=== PATIENT | male | born 1970 | race Hispanic/Latino ===

== ENCOUNTER 2018-10-19 05:20 | Observation (INO) | payer OTHER ==
[2018-10-19] MEDS ORDERED: Aspirin 325 mg EC Tablets PO STA (05:45)
--- NOTE | 2018-10-19 05:45 | C.PDOC ---
History Of Present Illness The patient, whose past medical history includes HTN and Hyperlipidemia (compliant with medication) presents to the ED for evaluation of chest discomfort which began prior to arrival. Patient reports a chest discomfort, like his heart rhythm was "irregular." He had some increased belching, for which he took Gas-X without relief. Patient denies chest pain, extremity pain, nausea, vomiting. Time Seen by Provider: 10/19/18 05:44 Chief Complaint (Nursing): Chest Pain History Per: Patient History/Exam Limitations: no limitations Onset/Duration Of Symptoms: Mins Current Symptoms Are (Timing): Still Present Severity: None Pain Scale Rating Of: 0 Quality: denies: "Pain" Associated Symptoms: denies: Nausea Modifying Factors: None Exacerbating Factors: None Alleviating Factors: None Recent travel outside of the [place]: No Additional History Per: Patient Past Medical History Reviewed: Historical Data, Nursing Documentation, Vital Signs Vital Signs: Last Vital Signs Temp 97.6 F 10/19/18 05:32 Pulse 77 10/19/18 05:32 Resp 20 10/19/18 05:32 BP 145/79 10/19/18 05:32 Pulse Ox 95 10/19/18 05:32 - Medical History PMH: Diverticulitis, Gall Bladder Disease, HTN, Sleep Apnea Denies: Chronic Kidney Disease Surgical History: Cholecystectomy Family History: States: Unknown Family Hx - Social History Hx Tobacco Use: Yes Hx Alcohol Use: Yes Hx Substance Use: No - Immunization History Hx Tetanus Toxoid Vaccination: Yes Hx Influenza Vaccination: No Hx Pneumococcal Vaccination: Yes Review Of Systems Constitutional: Negative for: Fever, Chills Eyes: Negative for: Vision Change Cardiovascular: Positive for: Other (chest discomfort ). Negative for: Chest Pain, Palpitations Respiratory: Negative for: Cough, Shortness of Breath Gastrointestinal: Negative for: Nausea, Vomiting, Abdominal Pain, Diarrhea, Constipation Genitourinary: Negative for: Dysuria, Frequency, Hematuria Musculoskeletal: Negative for: Neck Pain, Shoulder Pain, Arm Pain, Back Pain Skin: Negative for: Rash, Lesions, Jaundice, Bruising Neurological: Negative for: Weakness, Numbness Psych: Negative for: Anxiety Physical Exam - Physical Exam Appears: Non-toxic, No Acute Distress, Other (morbidly obese ) Skin: Warm, Dry Head: Normacephalic Eye(s): bilateral: Normal Inspection Oral Mucosa: Moist Neck: Supple Chest: Symmetrical, No Deformity, No Tenderness Cardiovascular: Rhythm Regular, No Murmur Respiratory: No Rales, No Rhonchi, No Wheezing, Other (speaking in full sentences ) Extremity: Normal ROM, Capillary Refill (less than 2 seconds ) Neurological/Psych: Oriented x3 ED Course And Treatment - Laboratory Results Result Diagrams: 10/19/18 06:09 10/19/18 06:09 ECG: Interpreted By Me, Viewed By Me ECG Rhythm: Sinus Rhythm (71), Nonspecific Changes O2 Sat by Pulse Oximetry: 95 (on RA) Pulse Ox Interpretation: Normal - Radiology CXR: Interpreted by Me, Viewed By Me CXR Interpretation: No: Infiltrates, Fracture, Pnemothorax Progress Note: Bloodwork, CXR, EKG ordered and reviewed. Aspirin PO given. Disposition Counseled Patient/Family Regarding: Studies Performed, Diagnosis - Disposition Disposition Time: 07:00 Condition: FAIR Forms: [facility] (Lux[place]bourgish) - Clinical Impression Clinical Impression: Palpitations - Scribe Statement The provider has reviewed the documentation as recorded by the Scribe (Kandi Garcia) Provider Attestation: All medical record entries made by the Scribe were at my direction and personally dictated by me. I have reviewed the chart and agree that the record accurately reflects my personal performance of the history, physical exam, medical decision making, and the department course for this patient. I have also personally directed, reviewed, and agree with the discharge instructions and disposition. Physician Patient Turnover Patient Signed Over To: Yas Huitron Handoff Comments: pending labs, re-eval and disposition
[2018-10-19] MEDS ORDERED: Aspirin 325 mg EC Tablets PO ONE (05:54)
[2018-10-19 06:18] LABS: BASO # 0.1 K/uL (0.0-0.2); BASO % 0.8 % (0.0-2.0); EOS # 0.2 K/uL (0.0-0.7); EOS % 3.4 % (0.0-4.0); HEMOGLOBIN 15.2 g/dL (12.0-18.0); LYMPH # 1.5 K/uL (1.0-4.3); LYMPH % 21.2 % (20.0-40.0); MEAN CELL VOLUME 86.1 fL (80.0-94.0); MEAN CORPUSCULAR HEMOGLOBIN 29.4 pg (27.0-31.0); MEAN CORPUSCULAR HGB CONC 34.1 g/dL (33.0-37.0); MEAN PLATELET VOLUME 7.1 fL (7.2-11.7); MONO # 0.6 K/uL (0.0-0.8); MONO % 8.1 % (0.0-10.0); NEUT # 4.6 K/uL (1.8-7.0); NEUT % 66.5 % (50.0-75.0); RBC 5.16 Mil/uL (4.40-5.90)
[2018-10-19 06:30] LABS: BLOOD UREA NITROGEN 23 mg/dL (9-20); CALCIUM 8.4 mg/dl (8.6-10.4); GFR NON-AFRICAN AMERICAN > 60
[2018-10-19 06:39] LABS: ALB/GLOB RATIO 1.5 (1.0-2.1); ALBUMIN 4.6 g/dL (3.5-5.0); ALT/SGPT 32 U/L (21-72); AST/SGOT 51 U/L (17-59)
--- NOTE | 2018-10-19 07:28 | RAD ---
Date of service: 10/19/2018 HISTORY: chest pain COMPARISON: None available. FINDINGS: LUNGS: No active pulmonary disease. PLEURA: No significant pleural effusion identified, no pneumothorax apparent. CARDIOVASCULAR: No aortic atherosclerotic calcification present. Normal cardiac size. No pulmonary vascular congestion. OSSEOUS STRUCTURES: No significant abnormalities. VISUALIZED UPPER ABDOMEN: Normal. OTHER FINDINGS: None. IMPRESSION: No acute cardiopulmonary disease appreciated.
[2018-10-19 07:42] LABS: BARBITURATES, UR NEGATIVE (NEGATIVE); BENZODIAZEPINES, UR NEGATIVE (NEGATIVE); OPIATES, UR NEGATIVE (NEGATIVE); PHENCYCLIDINE, UR NEGATIVE (NEGATIVE)
[2018-10-19 12:24] VITALS: RESP 20
[2018-10-19] MEDS: [UNRECOGNIZED DRUG - OTHER] PO SCH (22:12)
[2018-10-19] MEDS: CHLORDIAZEPOXIDE HCL PO SCH (22:12)
[2018-10-19] MEDS: VALSARTAN PO SCH (22:13)
[2018-10-19] MEDS: HCTZ PO SCH (22:13)
--- NOTE | 2018-10-19 23:08 | CP.PCM.HP ---
Present on Admission - Present on Admission Any Indicators Present on Admission: No Past Patient History - Past Social History Smoking Status: Current Some Days Smoker - CARDIAC Hx Hypertension: Yes - PULMONARY Hx Sleep Apnea: Yes - NEUROLOGICAL Hx Neurological Disorder: No - HEENT Hx HEENT Problems: Yes Hx Macular Degeneration: Yes - RENAL Hx Chronic Kidney Disease: No - ENDOCRINE/METABOLIC Hx Endocrine Disorders: No - HEMATOLOGICAL/ONCOLOGICAL Hx Blood Disorders: No - INTEGUMENTARY Hx Dermatological Problems: No - MUSCULOSKELETAL/RHEUMATOLOGICAL Hx Musculoskeletal Disorders: No - GASTROINTESTINAL Hx Diverticulitis: Yes Hx Gall Bladder Disease: Yes - GENITOURINARY/GYNECOLOGICAL Hx Genitourinary Disorders: No - PSYCHIATRIC Hx Substance Use: No - SURGICAL HISTORY Hx Cholecystectomy: Yes - ANESTHESIA Hx Anesthesia: Yes Hx Anesthesia Reactions: No Hx Malignant Hyperthermia: No Meds Allergies/Adverse Reactions: Allergies Allergy/AdvReac Type Severity Reaction Status Date / Time Penicillins Allergy RASH Verified 10/19/18 05:38 Results - Vital Signs Recent Vital Signs: Last Vital Signs Temp 97.6 F 10/19/18 15:00 Pulse 68 10/19/18 20:03 Resp 20 10/19/18 15:00 BP 150/81 10/19/18 20:03 Pulse Ox 97 10/19/18 15:00 - Labs Result Diagrams: 10/19/18 06:09 10/20/18 07:04 Labs: Laboratory Results - last 24 hr 10/19/18 10/19/18 10/19/18 06:09 06:09 07:02 WBC 7.0 RBC 5.16 Hgb 15.2 Hct 44.4 MCV 86.1 MCH 29.4 MCHC 34.1 RDW 14.0 Plt Count 262 MPV 7.1 L Neut % (Auto) 66.5 Lymph % (Auto) 21.2 Calvert % (Auto) 8.1 Eos % (Auto) 3.4 Baso % (Auto) 0.8 Neut # (Auto) 4.6 Lymph # (Auto) 1.5 Calvert # (Auto) 0.6 Eos # (Auto) 0.2 Baso # (Auto) 0.1 Sodium 134 Potassium 5.3 H Chloride 102 Carbon Dioxide 25 Anion Gap 12 BUN 23 H Creatinine 0.8 Est GFR ( Amer) > 60 Est GFR (Non-Af Amer) > 60 Random Glucose 115 H Calcium 8.4 L Total Bilirubin 2.1 H AST 51 ALT 32 Alkaline Phosphatase 90 Troponin I < 0.0120 Total Protein 7.7 Albumin 4.6 Globulin 3.0 Albumin/Globulin Ratio 1.5 TSH 3rd Generation 1.60 Urine Opiates Screen Negative Urine Methadone Screen Negative Ur Barbiturates Screen Negative Ur Phencyclidine Scrn Negative Ur Amphetamines Screen Negative U Benzodiazepines Scrn Negative U Oth Cocaine Metabols Negative U Cannabinoids Screen Negative 10/19/18 14:38 WBC RBC Hgb Hct MCV MCH MCHC RDW Plt Count MPV Neut % (Auto) Lymph % (Auto) Calvert % (Auto) Eos % (Auto) Baso % (Auto) Neut # (Auto) Lymph # (Auto) Calvert # (Auto) Eos # (Auto) Baso # (Auto) Sodium Potassium Chloride Carbon Dioxide Anion Gap BUN Creatinine Est GFR ( Amer) Est GFR (Non-Af Amer) Random Glucose Calcium Total Bilirubin AST ALT Alkaline Phosphatase Troponin I < 0.0120 Total Protein Albumin Globulin Albumin/Globulin Ratio TSH 3rd Generation Urine Opiates Screen Urine Methadone Screen Ur Barbiturates Screen Ur Phencyclidine Scrn Ur Amphetamines Screen U Benzodiazepines Scrn U Oth Cocaine Metabols U Cannabinoids Screen
[2018-10-19 23:49] LABS: CK-MB 0.72 ng/mL (0.0-3.38)
--- NOTE | 2018-10-20 04:51 | HP ---
CHIEF COMPLAINT: Palpitation. HISTORY OF PRESENT ILLNESS: This is a 48-year-old white male with history of morbid obesity, status post Lap-Band, hypertension, hyperlipidemia. He is on multiple medications. He is complaint with his diet, medication, and followup. He has sleep apnea and uses BiPAP. In his usual status of health. He is ambulatory and independent in activities of daily living. Today 4 in the morning, he woke up with substernal palpitation. He denies any weakness, dizziness associated with palpitation, and he is not able to tell if palpitation was regular or irregular. He denied any chest pain. He denies any dyspnea on exertion, orthopnea, or PND. He only had single episode while he was lying down. He denied any prior history of palpitation during walking or chest pain. During walking, he denied any cough or sore throat. He gets a lot of bloating. There is no history of polyuria, polydipsia, or polyphagia. There is no history of hematuria or pyuria. He denies any sneezing. PAST MEDICAL HISTORY: Morbid obesity, hypertension, and sleep apnea. SOCIAL HISTORY: Nonsmoker, non-ETOH user. CURRENT MEDICATIONS: He is on Bystolic, Diovan hydrochlorothiazide, Crestor, Pepcid, and Librax. FAMILY HISTORY: Negative for premature coronary artery disease. PHYSICAL EXAMINATION: GENERAL: A middle aged young male, in no distress, morbidly obese. VITAL SIGNS: Blood pressure 151/80, pulse 68, respiratory rate 20, and temperature 97.6. SKIN: No bruises. No purpura. No petechiae. No ecchymosis. HEENT: Atraumatic, normocephalic. Negative pallor. Negative jaundice. Extraocular movements are intact. NECK: Supple. No JVD. No lymph node. No thyromegaly. No carotid bruit. CHEST: Chest wall, bilateral symmetrical expansion. No tenderness. LUNGS: Clear. No rales. No rhonchi. CARDIOVASCULAR SYSTEM: PMI not localized . ABDOMEN: Soft, nontender. Bowel sounds positive. RECTAL: No masses. No bleed. EXTREMITIES: No clubbing, cyanosis, or edema. CENTRAL NERVOUS SYSTEM: Awake, alert, and oriented x3. ASSESSMENT: 1. Palpitation. Rule cardiac arrhythmia. Rule out cardiac ischemia. 2. Morbid obesity. 3. Sleep apnea. 4. Hypertension. PLAN: Admit. Detailed orders are written. Seen and examined. Pending Cardiology evaluation. Armando Edwards MD
[2018-10-20 08:15] LABS: ALB/GLOB RATIO 1.6 (1.0-2.1); ALBUMIN 4.2 g/dL (3.5-5.0); ALT/SGPT 30 U/L (21-72); AST/SGOT 25 U/L (17-59); BLOOD UREA NITROGEN 15 mg/dL (9-20); GFR NON-AFRICAN AMERICAN > 60
[2018-10-20 08:26] VITALS: BP 132/80; PULSE 61; TEMP 98.4; O2SAT 94
--- NOTE | 2018-10-20 09:47 | CP.PCM.CON ---
History of Present Illness - History of Present Illness History of Present Illness: The pt is a 48 year old man with morbid obesity, sleep apnea, s/p gastric banding in 2009. For many years, the pt had a yearly stress test, the last was a year ago. pt has no known CAD and exercises. he was in bed a 4 AM, developed dif fuse chest and gastric pain both, lasted about about 30 minutes, and relieved after several gas x tabs. No other symptoms. Pt thinks that he may have panicked. ECG is normal, tni negative. Echo today: normal LV EF, and dilated RV with normal PA pressure. Review of Systems - Review of Systems All systems: reviewed and no additional remarkable complaints except (as above.) Past Patient History - Past Social History Smoking Status: Current Some Days Smoker - CARDIAC Hx Hypertension: Yes - PULMONARY Hx Sleep Apnea: Yes - NEUROLOGICAL Hx Neurological Disorder: No - HEENT Hx HEENT Problems: Yes Hx Macular Degeneration: Yes - RENAL Hx Chronic Kidney Disease: No - ENDOCRINE/METABOLIC Hx Endocrine Disorders: No - HEMATOLOGICAL/ONCOLOGICAL Hx Blood Disorders: No - INTEGUMENTARY Hx Dermatological Problems: No - MUSCULOSKELETAL/RHEUMATOLOGICAL Hx Musculoskeletal Disorders: No - GASTROINTESTINAL Hx Diverticulitis: Yes Hx Gall Bladder Disease: Yes - GENITOURINARY/GYNECOLOGICAL Hx Genitourinary Disorders: No - PSYCHIATRIC Hx Substance Use: No - SURGICAL HISTORY Hx Cholecystectomy: Yes - ANESTHESIA Hx Anesthesia: Yes Hx Anesthesia Reactions: No Hx Malignant Hyperthermia: No Meds Allergies/Adverse Reactions: Allergies Allergy/AdvReac Type Severity Reaction Status Date / Time Penicillins Allergy RASH Verified 10/19/18 05:38 - Medications Medications: Current Medications Aspirin (Ecotrin) 81 mg PO DAILY [facility] Enoxaparin Sodium (Lovenox) 40 mg SC DAILY [facility] Famotidine (Pepcid) 40 mg PO BID [facility] Last Admin: 10/19/18 19:01 Dose: 40 mg Home Med (Patient's Own Medication) 1 tab PO DAILY [facility] Last Admin: 10/19/18 22:12 Dose: 1 tab Home Med (Patient's Own Medication) 1 tab PO DAILY [facility] Last Admin: 10/19/18 22:13 Dose: 1 tab Nebivolol (Bystolic) 5 mg PO DAILY [facility] Last Admin: 10/19/18 20:08 Dose: 5 mg Rosuvastatin Calcium (Crestor) 5 mg PO HS [facility] Last Admin: 10/19/18 22:11 Dose: 5 mg Physical Exam - Constitutional Appears: Well - Head Exam Head Exam: ATRAUMATIC - Eye Exam Eye Exam: EOMI - ENT Exam ENT Exam: Mucous Membranes Moist - Respiratory Exam Respiratory Exam: Clear to Auscultation Bilateral - Cardiovascular Exam Cardiovascular Exam: REGULAR RHYTHM - GI/Abdominal Exam GI & Abdominal Exam: Normal Bowel Sounds - Exam External exam: NORMAL EXTERNAL EXAM - Extremities Exam Extremities exam: Positive for: calf tenderness - Back Exam Back exam: NORMAL INSPECTION - Neurological Exam Neurological exam: Alert, CN II-XII Intact, Oriented x3, Reflexes Normal - Psychiatric Exam Psychiatric exam: Normal Affect, Normal Mood - Skin Skin Exam: Normal Color Results - Vital Signs Recent Vital Signs: Last Vital Signs Temp 98.4 F 10/20/18 08:25 Pulse 61 10/20/18 08:25 Resp 20 10/20/18 08:25 BP 132/80 10/20/18 08:25 Pulse Ox 94 L 10/20/18 08:25 - Labs Result Diagrams: 10/19/18 06:09 10/20/18 07:04 Labs: Laboratory Results - last 24 hr 10/19/18 10/19/18 10/20/18 14:38 23:02 07:04 Sodium 139 Potassium 4.0 Chloride 102 Carbon Dioxide 31 H Anion Gap 10 BUN 15 Creatinine 0.9 Est GFR ( Amer) > 60 Est GFR (Non-Af Amer) > 60 Random Glucose 101 Calcium 9.0 Total Bilirubin 2.1 H AST 25 ALT 30 Alkaline Phosphatase 66 Total Creatine Kinase 66 CK-MB (Mass) 0.72 Troponin I < 0.0120 < 0.0120 Total Protein 6.9 Albumin 4.2 Globulin 2.7 Albumin/Globulin Ratio 1.6 - EKG Data EKG Interpreted by: Myself EKG shows normal: Sinus rhythm Rate: Tachycardia Assessment & Plan - Assessment and Plan (Free Text) Assessment: 1. Atypical chest and abdominal pain as well, discomfort not centered on the chest, and relived by gas x tabs. Work up is negative. Pt reassured, discomfort likely not cardiac. 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 2. Pt has elevated TB, advise work up. 3. Dilated RV commonly seen in sleep apnea patents. Normal PA pressure. No work up at this time.
[2018-10-20] MEDS ORDERED: Enoxaparin 40 mg Syringe SC SCH (10:00)
[2018-10-20] MEDS: VALSARTAN PO SCH (10:31)
[2018-10-20] MEDS: CHLORDIAZEPOXIDE HCL PO SCH (10:31)
[2018-10-20] MEDS: [UNRECOGNIZED DRUG - OTHER] PO SCH (10:31)
[2018-10-20] MEDS: HCTZ PO SCH (10:31)
--- NOTE | 2018-10-20 16:18 | CP.PCM.PN ---
Subjective - Date & Time of Evaluation Date of Evaluation: 10/20/18 Time of Evaluation: 16:18 - Subjective Subjective: alert and oriented x3, denies sob or chest pains. NAD. Objective - Vital Signs/Intake and Output Vital Signs (last 24 hours): Temp Pulse Resp BP Pulse Ox 98.4 F 61 20 132/80 94 L 10/20/18 08:25 10/20/18 08:25 10/20/18 08:25 10/20/18 08:25 10/20/18 08:25 Intake and Output: 10/20/18 10/20/18 06:59 18:59 Intake Total 500 Balance 500 - Medications Medications: Current Medications Aspirin (Ecotrin) 81 mg PO DAILY [facility] Last Admin: 10/20/18 10:31 Dose: 81 mg Enoxaparin Sodium (Lovenox) 40 mg SC DAILY [facility] Last Admin: 10/20/18 10:31 Dose: 40 mg Famotidine (Pepcid) 40 mg PO BID [facility] Last Admin: 10/20/18 10:31 Dose: 40 mg Home Med (Patient's Own Medication) 1 tab PO DAILY [facility] Last Admin: 10/20/18 10:31 Dose: 1 tab Home Med (Patient's Own Medication) 1 tab PO DAILY [facility] Last Admin: 10/20/18 10:31 Dose: 1 tab Nebivolol (Bystolic) 5 mg PO DAILY [facility] Last Admin: 10/20/18 10:31 Dose: 5 mg Rosuvastatin Calcium (Crestor) 5 mg PO HS [facility] Last Admin: 10/19/18 22:11 Dose: 5 mg - Labs Labs: 10/19/18 06:09 10/20/18 07:04 Assessment and Plan - Assessment and Plan (Free Text) Assessment: 48 year old male admitted with chest discomfort, seen and examined. Alert and oriented x3, denies sob or chest pains. Cleared by the cardiologyst, discussed with DR Edwards, plan to discharge home today. Advised to follow up with his own cardiologyst in 1 week.
--- NOTE | 2018-10-20 20:50 | CP.PCM.DIS ---
Provider - Provider Date of Admission: 10/19/18 08:25 Attending physician: Armando Edwards MD Consults: 10/19/18 17:54 Cardiology Consult Routine Comment: Consulting Provider: Chuck Hutchinson Consulting Physician: Chuck Hutchinson Reason for Consult: chest pain Time Spent in preparation of Discharge (in minutes): 30 Hospital Course - Lab Results Lab Results: Most Recent Lab Values WBC 7.0 K/uL (4.8-10.8) 10/19/18 06:09 RBC 5.16 Mil/uL (4.40-5.90) 10/19/18 06:09 Hgb 15.2 g/dL (12.0-18.0) 10/19/18 06:09 Hct 44.4 % (35.0-51.0) 10/19/18 06:09 MCV 86.1 fL (80.0-94.0) 10/19/18 06:09 MCH 29.4 pg (27.0-31.0) 10/19/18 06:09 MCHC 34.1 g/dL (33.0-37.0) 10/19/18 06:09 RDW 14.0 % (11.5-14.5) 10/19/18 06:09 Plt Count 262 K/uL (130-400) 10/19/18 06:09 MPV 7.1 fL (7.2-11.7) L 10/19/18 06:09 Neut % (Auto) 66.5 % (50.0-75.0) 10/19/18 06:09 Lymph % (Auto) 21.2 % (20.0-40.0) 10/19/18 06:09 Otero % (Auto) 8.1 % (0.0-10.0) 10/19/18 06:09 Eos % (Auto) 3.4 % (0.0-4.0) 10/19/18 06:09 Baso % (Auto) 0.8 % (0.0-2.0) 10/19/18 06:09 Neut # (Auto) 4.6 K/uL (1.8-7.0) 10/19/18 06:09 Lymph # (Auto) 1.5 K/uL (1.0-4.3) 10/19/18 06:09 Otero # (Auto) 0.6 K/uL (0.0-0.8) 10/19/18 06:09 Eos # (Auto) 0.2 K/uL (0.0-0.7) 10/19/18 06:09 Baso # (Auto) 0.1 K/uL (0.0-0.2) 10/19/18 06:09 Sodium 139 mmol/L (132-148) 10/20/18 07:04 Potassium 4.0 mmol/L (3.6-5.2) 10/20/18 07:04 Chloride 102 mmol/L (98-107) 10/20/18 07:04 Carbon Dioxide 31 mmol/L (22-30) H 10/20/18 07:04 Anion Gap 10 (10-20) 10/20/18 07:04 BUN 15 mg/dL (9-20) 10/20/18 07:04 Creatinine 0.9 mg/dL (0.8-1.5) 10/20/18 07:04 Est GFR ( Amer) > 60 10/20/18 07:04 Est GFR (Non-Af Amer) > 60 10/20/18 07:04 Random Glucose 101 mg/dL (75-110) 10/20/18 07:04 Calcium 9.0 mg/dl (8.6-10.4) 10/20/18 07:04 Total Bilirubin 2.1 mg/dL (0.2-1.3) H 10/20/18 07:04 AST 25 U/L (17-59) 10/20/18 07:04 ALT 30 U/L (21-72) 10/20/18 07:04 Alkaline Phosphatase 66 U/L (38-126) 10/20/18 07:04 Total Creatine Kinase 66 U/L (55-170) 10/19/18 23:02 CK-MB (Mass) 0.72 ng/mL (0.0-3.38) 10/19/18 23:02 Troponin I < 0.0120 ng/mL (0.00-0.120) 10/19/18 23:02 Total Protein 6.9 g/dL (6.3-8.3) 10/20/18 07:04 Albumin 4.2 g/dL (3.5-5.0) 10/20/18 07:04 Globulin 2.7 gm/dL (2.2-3.9) 10/20/18 07:04 Albumin/Globulin Ratio 1.6 (1.0-2.1) 10/20/18 07:04 TSH 3rd Generation 1.60 mIU/L (0.46-4.68) 10/19/18 06:09 Urine Opiates Screen Negative (NEGATIVE) 10/19/18 07:02 Urine Methadone Screen Negative (NEGATIVE) 10/19/18 07:02 Ur Barbiturates Screen Negative (NEGATIVE) 10/19/18 07:02 Ur Phencyclidine Scrn Negative (NEGATIVE) 10/19/18 07:02 Ur Amphetamines Screen Negative (NEGATIVE) 10/19/18 07:02 U Benzodiazepines Scrn Negative (NEGATIVE) 10/19/18 07:02 U Oth Cocaine Metabols Negative (NEGATIVE) 10/19/18 07:02 U Cannabinoids Screen Negative (NEGATIVE) 10/19/18 07:02 Discharge Exam - Head Exam Head Exam: ATRAUMATIC Discharge Plan - Follow Up Plan Condition: STABLE Disposition: HOME/ ROUTINE Instructions: Heart Healthy Diet, Chest Pain (DC), Acute Abdominal Pain (DC), Acute Abdominal Pain (GEN) Additional Instructions: 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
--- NOTE | 2018-10-20 22:05 | CARD ---
APPROVED REPORT Date of service: 10/20/2018 EXAM: Two-dimensional and M-mode echocardiogram with Doppler and color Doppler. Other Information Quality : GoodRhythm : INDICATION Chest Pain 2D DIMENSIONS IVSd1.2 (0.7-1.1cm)LVDd5.5 (3.9-5.9cm) PWd1.1 (0.7-1.1cm)LA Ipzqva90 (18-58mL) LVDs3.5 (2.5-4.0cm)FS (%) 36.0 % LVEF (%)65.0 (>50%)LVEF (Graff's)61.08 % M-Mode DIMENSIONS Left Atrium (MM)5.15 (2.5-4.0cm)IVSd1.15 (0.7-1.1cm) Aortic Root4.18 (2.2-3.7cm)LVDd6.01 (4.0-5.6cm) Aortic Cusp Exc.2.55 (1.5-2.0cm)PWd1.03 (0.7-1.1cm) FS (%) 39 %LVDs3.66 (2.0-3.8cm) LVEF (%)69 (>50%) Mitral Valve MV E Jqocwkyx53.8cm/sMV A Vlskddcp80.3cm/sE/A ratio1.2 TDI Lateral E' Peak V10.68cm/sMedial E' Peak V6.54cm/sE/Lateral E'9.1 E/Medial E'14.8 <Conclusion> Suboptimal study Left ventricle: thickness: normal; size: normal; overall ejection fraction: 65%: diastolic filling pressures: normal Mitral valve: annulus: normal: leaflets: calcific thickening excursion: normal; no significant trans-mitral gradient: no significant incompetence: left atrium: normal Aortic valve: leaflets: normal morphology: excursion: normal; no significant trans-aortic gradient: No significant incompetence: aortic root: normal; Right sided Structures: Pulmonary valve: normal; no significant incompetence; Tricuspid valve: normal; no significant incompetence: Intra-cardiac hemodynamics: pulmonary systolic pressures: normal; central venous pressures: normal No pericardial effusion
--- NOTE | 2018-10-21 06:18 | DS ---
DISCHARGE DIAGNOSES: 1. Noncoronary chest pain. 2. Hypertension. 3. Morbid obesity. 4. Sleep apnea. HISTORY OF PRESENT ILLNESS: This is a 48-year-old white male, morbidly obese with history of hypertension and sleep apnea. He is compliant with his BiPAP machine, blood pressure medications. The patient is in his usual status of health. He is ambulatory and independent in activities of daily living. He came in because of palpitation. He denies any weakness, dizziness, or palpitation. It is nonexertional, not associated with diaphoresis, dizziness. This only happened once, 4:00 in the morning on the day of admission, not associated with diaphoresis or dizziness. No cough. No pleurisy. No dyspepsia. He denies any history of polyuria, polydipsia, polyphagia. He denies any history of hematuria or pyuria. He denies any sneezing, itchy eyes, or itchy nose. He denies any history of joint pain or hip pain. He feels fatigued. PAST MEDICAL HISTORY: Sleep apnea, hypertension, morbid obesity. SOCIAL HISTORY: Nonsmoker. Non-EtOH user. The patient has prior history of Lap-Band for weight loss. PLAN: The patient's cardiac enzymes x3 negative and he has been cleared by Cardiology for discharge. The patient will be monitored closely. he will have a stress test done by his PMD. Armando Edwards MD
--- NOTE | 2018-10-21 15:54 | CARD ---
APPROVED REPORT Date of service: 10/19/2018 EKG Measurement Heart [id number] CT [id number] <Conclusion> Normal sinus rhythm Normal ECG
== END 2018-10-20 18:16 | disposition home or self-care (01) ==
LOC: C.ER 05:20 → C.9E 08:25 → C.5S 11:23
PROVIDERS: ADMIT Internal Medicine; ATTEND Internal Medicine
DX: R07.9 Chest pain, unspecified (principal); I10 Essential (primary) hypertension; G47.30 Sleep apnea, unspecified; F17.210 Nicotine dependence, cigarettes, uncomplicated; E66.01 Morbid (severe) obesity due to excess calories; E78.5 Hyperlipidemia, unspecified; H35.30 Unspecified macular degeneration; I49.9 Cardiac arrhythmia, unspecified; Z87.891 Personal history of nicotine dependence; Z90.49 Acquired absence of other specified parts of digestive tract; Z98.84 Bariatric surgery status
CPT/HCPCS: 36415; 71045; 80053; 80324; 80345; 80346; 80349; 80353; 80358; 80361; 83992; 84443; 84484; 85025; 93005; 93306; 99284; G0378; J1650